=== PATIENT | male | born 1975 | race Caucasian/White ===

== ENCOUNTER 2020-03-28 23:27 | Emergency (ER) | payer SELFPAY ==
[~2020-03-28] VITALS: Ht 182.9 cm; Wt 106.6 kg
[~2020-03-28 23:27] MED LIST: ADDERALL 20 MG20 MG
[2020-03-28] MEDS ORDERED: ONDANSETRON HCL INJ 2MG/ML 2ML 2 MG/ML VIAL IV STA (23:57)
[2020-03-29] MEDS ORDERED: SODIUM CHLORIDE 0.9% 1000ML 1,000 ML IV SCH
[2020-03-29] MEDS ORDERED: SODIUM CHLORIDE 0.9% 1000ML 1,000 ML ONE (00:14)
[2020-03-29] MEDS ORDERED: ONDANSETRON HCL INJ 2MG/ML 2ML 2 MG/ML VIAL ONE (00:14)
[2020-03-29] MEDS ORDERED: ZOFRAN4 MG PO (00:51)
--- NOTE | 2020-03-29 01:08 | Emergency Department Note ---
History of Present Illnes History of Present Illness Chief Complaint: General Medicine Complaints History of Present Illness This is a 44 year old male with chief complaint of syncope while vomiting. Patient has occurred which she is on a PPI twice a day for, hiatal hernia, and a history of gastric sleeve surgery. He presents with nausea vomiting after eating pizza and a protein bar. Similar symptoms as this in the past with the over eating after gastric sleeve surgery, however easily has to eat much more than this for her symptoms to occur. States had witnessed syncope during prolonged gagging/vomiting episode. Lasted only 1-2 seconds. No witnessed seizure activity. No loss of bowel or bladder function. Denies any pain over bleeding from his tongue or mouth. This occurred approximately 10:30 PM tonight. He states he was "a little groggy" upon awakening from the episode, but knew who/where he was and aware of his surroundings. Patient states she is back to normal now. Historian: Patient Arrival Mode: Car Ice Cream Dipper Required: No Onset (how long ago): hour(s) Location: No pain Severity: unable to specify Onset quality: sudden Timing of current episode: unable to specify Progression: partially resolved Chronicity: new Relieving factors: none Exacerbating factors: other (vomiting) Past Medical/Family History Physician Review I have reviewed the patient's past medical and family history. Any updates have been documented here. Past Medical History Recent Fever: No Clinical Suspicion of Infectio: No New/Unexplained Change in Ment: No Past Medical History: Hypertension Past Surgical History: Bariatric Surgery Social History Smoking Cessation: Never Smoker Any Illegal Drug Use: No Review of Systems Review of Systems Constitutional: Reports no symptoms; Denies chills, Denies fever, Denies malaise, Denies weakness EENTM: Reports no symptoms Respiratory: Reports no symptoms; Denies wheezing Neurological: Reports no symptoms Endocrine: Denies flushing, Denies intolerance to cold, Denies intolerance to heat Hematological/Lymphatic: Denies easy bleeding, Denies easy bruising Physical Exam Related Data Allergies: Coded Allergies: No Known Allergies (Unverified , 09/25/19) Vital signs reviewed: Yes Physical Exam CONSTITUTIONAL Constitutional: Present well-developed HENT HENT: Present normocephalic, Present atraumatic, Present oropharynx clear/moist, Present oropharynx normal HENT L/R: Present left ext ear normal, Present right ext ear normal EYES NECK Neck: Present ROM normal PULMONARY Pulmonary: Present effort normal, Present breath sounds normal CARDIOVASCULAR Cardiovascular: Present regular rhythm, Present heart sounds normal, Present capillary refill normal, Present normal rate GASTROINTESTINAL Abdominal: Present soft, Present nontender, Present distension, Present tender GENITOURINARY SKIN Skin: Present warm, Present dry MUSCULOSKELETAL Musculoskeletal: Present ROM normal NEUROLOGICAL Neurological: Present alert, Present oriented x 3, Present DTRs normal, Present no gross motor or sensory deficits; Absent cranial nerve deficit PSYCHOLOGICAL Psychological: Present mood/affect normal Results Laboratory Lab results reviewed: Yes Laboratory comments Sodium 143, potassium 4.6, bicarbonate 25, chloride 109, glucose 125, calcium 8.9, BUN 21, creatinine 1.3, LFTs are normal, cardiac enzymes are unremarkable white blood cell count is 5.7, hemoglobin 13.3 with hematocrit of 40.5. The platelet count is 225 Procedures 12 Lead ECG Interpretation ECG Interpretation : ECG: ECG 1 Ice Cream Dipper: Interpreted by ED physician Rhythm: sinus rhythm BPM: 88 QRS axis: normal ST segments normal: Yes T waves normal: Yes Clinical Impression: normal ECG Assessment & Plan Medical Decision Making MDM Differential diagnosis includes but is not limited to arrhythmia coronary artery disease, [place] from gastric sleeve surgery, GERD, stroke, seizure Reassessment Reassessment time: 01:06 Reassessment Patient is asymptomatic at discharge and tolerated by mouth fluids. Assessment & Plan Final Impression: (1) Volume depletion (2) Dehydration (3) Hypovolemia (4) Vomiting Depart Disposition: HOME, SELF-FCI Meds Active Scripts Ondansetron Hcl* (ZOFRAN*) 4 Mg Tablet, 4 MG PO 5XD PRN for NAUSEA AND VOMITING, #10 Prov:LILIA FABIAN MD 03/29/20 Reported Medications Amphet Asp/Amphet/D-Amphet (ADDERALL 20 MG TABLET) 20 Mg Tablet, DAILY 09/25/19 Medications in the ED Sodium Chloride 1,000 ml @ 125 mls/hr Q8H IV ; Start 03/29/20 at 00:00; Stop 04/28/20 at 00:00; Status UNV Ondansetron HCl 4 mg NOW STAT IV ; Start 03/28/20 at 23:57; Stop 03/28/20 at 23:58; Status UNV LILIA FABIAN MD Mar 29, 2020 00:14
== END 2020-03-29 01:08 | disposition home or self-care (01) ==
LOC: FSED 03-29 00:02
DX: E86.0 Dehydration (principal); E86.1 Hypovolemia; Z98.84 Bariatric surgery status; K44.9 Diaphragmatic hernia without obstruction or gangrene; I10 Essential (primary) hypertension
CPT/HCPCS: 80053; 82553; 84484; 85025; 93005; 99283; J2405; J7030